=== PATIENT | male | born 1940 | race Hispanic/Latino ===

== ENCOUNTER → 2019-10-24 | Outpatient (CLI) | payer MEDICARE ==
--- NOTE | 2019-10-24 12:25 | Diagnostic Imaging Report ---
EXAM: CHEST 2 VIEWS DATE: 10/24/2019 11:20 AM INDICATION: CHF COMPARISON: None IMPRESSION: There are postsurgical changes from prior median sternotomy. The trachea is midline. There are bibasilar opacities suggestive of atelectasis/scarring. There is no evidence for large focal consolidation or pneumothorax. There is blunting of the costophrenic angles and trace effusions are possible. No significant volume of pleural fluid is present. The cardiomediastinal silhouette is unremarkable. The pulmonary vasculature is not engorged. Atherosclerotic calcifications are noted within the thoracic aorta. No acute osseous abnormality is identified. Signed by: Dr. Antonino Elizalde MD on 10/24/2019 12:22 PM
== END ==
LOC: RAD 11:11
PROVIDERS: ATTEND Family Medicine
DX: I50.9 Heart failure, unspecified (principal)
CPT/HCPCS: 71046